=== PATIENT | female | born 1965 | race Caucasian/White ===

== ENCOUNTER 2023-05-31 07:37 | Emergency (ER) | payer OTHER ==
[2023-05-31] MEDS ORDERED: Bacitracin Oint 30 GM Tube TOP ONE (08:24)
[2023-05-31] MEDS ORDERED: Bacitracin/Neomycin/Polymyxin B Oint 0.9 GM U/D Packet TOP ONE (08:26)
== END 2023-05-31 08:35 | disposition home or self-care (01) ==
LOC: KA.ED 07:37
DX: S69.92XA Unspecified injury of left wrist, hand and finger(s), initial encounter (principal); W20.8XXA Other cause of strike by thrown, projected or falling object, initial encounter
CPT/HCPCS: 73130-LT; 99283

== ENCOUNTER 2023-10-09 14:07 | Emergency (ER) | payer MEDICAID ==
[2023-10-09 14:56] LABS: BASOPHILS PERCENT AUTO 0.9 % (0.0-1.0); EOSINOPHILS ABSOLUTE AUTO 0.06 10^3/uL (0.10-0.30); EOSINOPHILS PERCENT AUTO 0.6 % (1.0-3.0); HEMATOCRIT 35.9 % (37.0-47.0); HEMOGLOBIN 12.2 g/dL (12.0-16.0); IMMATURE GRAN ABSOLUTE AUTO 0.01 10^3/uL (0.00-0.50); IMMATURE GRAN PERCENT AUTO 0.1 % (0.0-5.0); LYMPHOCYTES ABSOLUTE AUTO 3.64 10^3/uL (1.00-4.00); LYMPHOCYTES PERCENT AUTO 34.1 % (20.0-40.0); MEAN CORPUSCULAR HEMOGLOBIN 35.3 pg (27.0-31.0); MEAN CORPUSCULAR VOLUME 103.8 fL (82.0-92.0); MEAN PLATELET VOLUME 8.5 fL (7.4-10.4); MONOCYTES ABSOLUTE AUTO 0.67 10^3/uL (0.10-0.80); MONOCYTES PERCENT AUTO 6.3 % (2.0-8.0); PLATELET COUNT,PLT 177 10^3/uL (150-400); RED BLOOD CELL COUNT 3.46 10^6/uL (3.80-5.50); RED CELL DISTRIBUTION WIDTH 15.4 % (11.5-14.5); WHITE BLOOD CELL COUNT,WBC 10.68 10^3/uL (5.00-10.00)
[2023-10-09 15:11] LABS: ALANINE AMINOTRANSFERASE,ALT 17 U/L (14-63); ALKALINE PHOSPHATASE 377 U/L (46-116); ANION GAP 15.2 mmol/L (5-15); ASPARTATE AMNIOTRANSFERASE,AST 161 U/L (15-37); BILIRUBIN TOTAL 3.1 mg/dL (0.2-1.0); CALCIUM 8.9 mg/dL (8.7-10.3); CARBON DIOXIDE,CO2 28.3 mmol/L (21.0-32.0); CHLORIDE,CL 97 mmol/L (98-107); CREATININE 0.46 mg/dL (0.51-1.17); GLUCOSE RANDOM 99 mg/dL (70-140); POTASSIUM,K 3.5 mmol/L (3.5-5.1); PROTEIN TOTAL,TP 7.5 g/dL (6.4-8.2); SODIUM,NA 137 mmol/L (136-145)
[2023-10-09 15:22] LABS: ESTIMATED GFR 111 mL/min (>=60)
[2023-10-09 15:26] LABS: BLOOD UREA NITROGEN,BUN < 7 mg/dL (7-18)
[2023-10-09] MEDS: HYDROmorphone 1 MG/ML Syringe IVPUSH ONE (15:53)
== END 2023-10-09 17:50 ==
LOC: KA.ED 14:07
DX: R06.00 Dyspnea, unspecified (principal); R18.8 Other ascites; R74.01 Elevation of levels of liver transaminase levels
CPT/HCPCS: 36415; 71045; 74176; 80053; 85025; 96374; 99284; 99285-25; J1170

== ENCOUNTER 2024-10-28 11:39 | Emergency (ER) | payer MEDICAID ==
[2024-10-28] MEDS: HYDROmorphone 1 MG/ML Syringe IVPUSH ONE (12:20)
[2024-10-28] MEDS: Ondansetron 4 MG/2 ML SDV IVPUSH ONE (12:29)
[2024-10-28] MEDS: Acetaminophen/HYDROcodone 325-10 MG Tab PO ONE (12:55)
== END 2024-10-28 13:00 | disposition home or self-care (01) ==
LOC: KA.ED 11:39
DX: S20.211A Contusion of right front wall of thorax, initial encounter (principal); W06.XXXA Fall from bed, initial encounter
CPT/HCPCS: 71101-RT; 96374; 96375; 99283; 99283-25; A9270-GY; J1171; J2405